=== PATIENT | male | born 1960 | race Caucasian/White ===

== ENCOUNTER 2017-11-10 10:05 | Emergency (ER) | payer SELFPAY ==
--- NOTE | 2017-11-10 10:47 | ED ---
Neurological HPI - HPI Summary HPI Summary: This patient is a 56 year old M presenting to [facility] accompanied by his with a chief complaint of confusion and memory loss with right arm weakjness last night 11/09/17; sx are currently resolved. He endorses memory loss, aphasia ( can only get a few words out, difficulty understanding speech), possible right sided hemiplegia, weakness, tremors, fatigue, and hypersomnia; this is at least the 6th episode, all of which start at around 1800, and each episode seems to be worse than the last. Pt is seeing Dr. Marrufo and has been treated since may for memory loss, neck compression, and muscular issues. Pts endorses sx are possibly stress related due to work. Pt endorsed similar sx with statins in the past. PMHx CPAP, essential tremor, right handed. - History of Current Complaint Chief Complaint: EDNeurologicalDeficit Stated Complaint: POSS STROKE 11/09 Time Seen by Provider: 11/10/17 10:18 Hx Obtained From: Patient, Family/Program Architect Onset/Duration: Sudden Onset, Started hours ago, Resolved Timing: Constant Onset Severity: Moderate Current Severity: None Neurological Deficit Location: Generalized Pain Intensity: 0 Pain Scale Used: 0-10 Numeric Character: Weak, Motor Weakness, Impaired Speech, Confusion, Lethargy, Other: - amnesia Aggravating: Sleep Deprivation - Only symptomatic in the evening/night, Stress Alleviating: Rest Associated Signs and Symptoms: Positive: Unsteady Gait, Memory Loss, Confusion, Weakness, Impaired Speech. Negative: Fever - Allergy/Home Medications Allergies/Adverse Reactions: Allergies Allergy/AdvReac Type Severity Reaction Status Date / Time No Known Allergies Allergy Verified 11/10/17 10:26 Home Medications: Home Medications Irbesartan/Hydrochlor 150/12.5 1 tab PO DAILY 11/10/17 [History Confirmed ] Propranolol TAB* [Inderal TAB*] 60 mg PO DAILY 11/10/17 [History Confirmed 11/10] PMH/Surg Hx/FS Hx/Imm Hx Endocrine/Hematology History: Denies: Hx Diabetes, Hx Sickle Cell Disease Cardiovascular History: Reports: Hx Hypertension - ON MEDS Denies: Hx Pacemaker/ICD Respiratory History: Denies: Hx Lung Cancer GI History: Denies: Hx Ileostomy History: Denies: Hx Renal Disease Sensory History: Reports: Hx Contacts or Glasses Denies: Hx Legally Blind, Hx Deafness, Hx Hearing Aid Opthamlomology History: Reports: Hx Contacts or Glasses Denies: Hx Legally Blind EENT History: Denies: Hx Deafness Neurological History: Reports: Other Neuro Impairments/Disorders - sundowners aphasia, amnesia Psychiatric History: Denies: Hx Panic Disorder - Surgical History Surgery Procedure, Year, and Place: LT KNEE - MMT REPAIR Infectious Disease History: No Infectious Disease History: Denies: Traveled Outside the [place] in Last 30 Days - Family History Known Family History: Positive: Hypertension, Diabetes, Other - CVA, CA - Social History Occupation: Employed Full-time Lives: With Family Alcohol Use: Occasionally Substance Use Type: Reports: None Smoking Status (MU): Never Smoked Tobacco Review of Systems Positive: Fatigue, Other - tremors. Negative: Fever Positive: no symptoms reported Neurological: Other - hemiplegia (possibly) right sided, amnesia, hypersomnia, Positive: Weakness, Slurred Speech - aphasia All Other Systems Reviewed And Are Negative: Yes Physical Exam - Summary Physical Exam Summary: Appearance: The patient is well-nourished in no acute distress and in no acute pain. Skin: The skin is warm and dry and skin color reflects adequate perfusion. HEENT: The head is normocephalic and atraumatic. The pupils are equal and reactive. The conjunctivae are clear and without drainage. Nares are patent and without drainage. Mouth reveals moist mucous membranes and the throat is without erythema and exudate. The external ears are intact. The ear canals are patent and without drainage. The tympanic membranes are intact. Neck: The neck is supple with full range of motion and non-tender. There are no carotid bruits. There is no neck vein distension. Respiratory: Chest is non-tender. Lungs are clear to auscultation and breath sounds are symmetrical and equal. Cardiovascular: Heart is regular rate and rhythm. There is no murmur or rub auscultated. There is no peripheral edema and pulses are symmetrical and equal. Abdomen: The abdomen is soft and non-tender. There are normal bowel sounds heard in all four quadrants and there is no organomegaly palpated. Musculoskeletal: There is no back tenderness noted. Extremities are non-tender with full range of motion. There is good capillary refill. There is no peripheral edema or calf tenderness elicited. Neurological: Patient is alert and oriented to person, place and time. The patient has symmetrical motor strength in all four extremities. Cranial nerves are grossly intact. Deep tendon reflexes are symmetrical and equal in all four extremities. NIH 0. Psychiatric: The patient has an appropriate affect and does not exhibit any anxiety or depression. Triage Information Reviewed: Yes Vital Signs On Initial Exam: Initial Vitals Temp Pulse Resp BP Pulse Ox 97.9 F 70 18 138/94 96 11/10/17 10:08 11/10/17 10:08 11/10/17 10:08 11/10/17 10:08 11/10/17 10:08 Vital Signs Reviewed: Yes - [place] Coma Scale Best Eye Response: 4 - Spontaneous Best Motor Response: 6 - Obeys Commands Best Verbal Response: 5 - Oriented Coma Scale Total: 15 Diagnostics - Vital Signs Vital Signs Temp Pulse Resp BP Pulse Ox 11/10/17 10:18 142/97 11/10/17 10:16 72 95 11/10/17 10:08 97.9 F 70 18 138/94 96 - Laboratory Result Diagrams: 11/10/17 11:41 11/10/17 11:40 Lab Statement: Any lab studies that have been ordered have been reviewed, and results considered in the medical decision making process. - CT Brain CT Interpretation: No Acute Changes CT Interpretation Completed By: Radiologist - No acute intracranial pathology. Dr. Thomas has reviewed this report. NIH Scale - NIH Scale Level of Consciousness: Alert/Keenly Responsive Ask Patient the Month and His/Her Age: Both Correct Ask Pt to Open/Close Eyes and Java User Interface Developer/Release Non-Paretic Hand: Both Correctly Best Gaze (Only Horizontal Eye Movement): Normal Visual Field Testing: No Visual Loss Facial Paresis-Pt to Smile & Close Eyes or Grimace Symmetry: Normal/Symmetrical Motor Function - Right Arm: No Drift-Holds 10 Seconds Motor Function - Left Arm: No Drift-Holds 10 Seconds Motor Function - Right Leg: No Drift-Holds 10 Seconds Motor Function - Left Leg: No Drift-Holds 10 Seconds Limb Ataxia-Must be out of Proportion to Weakness Present: Absent Sensory (Use Pinprick to Test Arms/Legs/Trunk/Face): Normal Best Language (Describe Picture, Name Items): No Aphasia Dysarthria (Read Several Words): Normal Extinction and Inattention: No Abnormality Total Score: 0 Re-Evaluation - Re-Evaluation First Eval Re-Evaluation Time: 13:41 Comment: discussed discharge and discharge instructions, follow up with Dr. Marrufo. Course/Dx - Course Course Of Treatment: Mr. Coronado presented with an unusual history of nighttime episodes of confusion and memory loss worse last night being worked up by Dr. Marrufo. His exam was unremarkable today and his vitals are stable. He goes to bed every evening at 6:00 and a confused state and sleeps 12 hours. A workup was obtained here and was within normal limits as well as his physical exam aside from a blood alcohol level of 50 approximately 17 hours after he went to bed. Dr. Snell had been contacted and came to the emergency department to evaluate him. It appears that he has been drinking a lot because of the stress of work and hiding it from his . It was recommended that he follow up with alcohol and drug counseling and get some psychological counseling for distress. He agreed to that plan as did she. - Diagnoses Provider Diagnoses: Alcohol use, Stress at work - Physician Notifications Discussed Care Of Patient With: Juan Snell Time Discussed With Above Provider: 12:28 Instructed by Provider To: Other - Will see pt in ED. Discharge - Sign-Out/Discharge Documenting (check all that apply): Patient Departure - discharge - Discharge Plan Condition: Stable Disposition: HOME Patient Education Materials: At-Risk Alcohol Use (ED) Referrals: López Marrufo MD [Medical Doctor] - 1 Week Additional Instructions: Return to the emergency department for any new or worsening symptoms. Follow up with drug and alcohol [place] [facility] using the highlighted information on the sheet provided. - Billing Disposition and Condition Condition: STABLE Disposition: Home - Attestation Statements Document Initiated by Itz: Yes Documenting Scribe: Micha Gramajo Provider For Whom Itz is Documenting (Include Credential): Dr. Kenneth Thomas MD Scribe Attestation: Micha Keys scribed for Dr. Kenneth Thomas MD on 11/10/17 at 1550. Scribe Documentation Reviewed: Yes Provider Attestation: The documentation as recorded by the Micha veras accurately reflects the service I personally performed and the decisions made by me, Dr. Kenneth Thomas MD
[2017-11-10 11:52] LABS: ABS Basophils 0.1 10^3/ul (0-0.2); ABS Eosinophils 0.1 10^3/ul (0-0.6); ABS Lymphocytes 1.1 10^3/ul (1.0-4.8); ABS Monocytes 0.8 10^3/ul (0-0.8); ABS Neutrophils 7.8 10^3/ul (1.5-7.7); ABS Nucleated RBC 0 10^3/ul; Eosinophil % 1.3 % (0-6); Hematocrit 42 % (42-52); Hemoglobin 14.2 g/dl (14.0-18.0); Lymphocyte % 11.2 % (25-47); Mean Corpuscular HGB Conc 34 g/dl (31-36); Mean Corpuscular Hemoglobin 33 pg (27-31); Mean Corpuscular Volume 98 fL (80-94); Mean Platelet Volume 7.8 um3 (7.4-10.4); Nucleated Red Blood Cells % 0; Platelet Count 194 10^3/ul (150-450); Red Blood Count 4.31 10^6/ul (4.00-5.40); Red Cell Distribution Width 13 % (10.5-15); White Blood Count 9.9 10^3/ul (3.5-10.8)
--- NOTE | 2017-11-10 11:56 | RAD ---
HISTORY: AMS COMPARISONS: MRI dated July 27, 2017 TECHNIQUE: Multiple contiguous axial CT scans were obtained of the head without intravenous contrast. FINDINGS: HEMORRHAGE/INFARCT: There is no hemorrhage or acute infarct. MASSES/SHIFT: There is no mass or shift. EXTRA-AXIAL SPACES: There are no extra-axial fluid collections. SULCI AND VENTRICLES: The sulci and ventricles are normal in size and position for the patient's stated age. CEREBRUM: There are no focal parenchymal abnormalities. BRAINSTEM: There are no focal parenchymal abnormalities. CEREBELLUM: There are no focal parenchymal abnormalities. VESSELS: The vessels are grossly normal. PARANASAL SINUSES: The paranasal sinuses are clear. ORBITS: The orbits are unremarkable. BONES AND SOFT TISSUE: No bone or soft tissue abnormalities are noted. OTHER: None IMPRESSION: NO ACUTE INTRACRANIAL PATHOLOGY.
[2017-11-10 11:58] LABS: INR 0.91 (0.77-1.02)
[2017-11-10 12:12] LABS: EGFR Non-African American 85.6 (>60)
[2017-11-10 12:38] LABS: Urine Appearance Clear; Urine Blood Negative (Negative); Urine Color Yellow; Urine Ketones Trace (Negative); Urine Protein Negative (Negative); Urine Specific Gravity 1.021 (1.010-1.030); Urine Urobilinogen Negative (Negative)
[2017-11-10 13:58] VITALS: BP 158/102
--- NOTE | 2017-11-10 21:59 | CONS ---
NEUROLOGY CONSULTATION NOTE: DATE OF CONSULT: 11/10/17 - EMERGENCY DEPT CONSULTING PROVIDER: Dr. Femi Thomas. REASON FOR CONSULT: Episodes of memory loss, impairment in language that resolved the following morning. CHIEF COMPLAINT: Tremors. HISTORY OF PRESENT ILLNESS: Mr. López Coronado is a 56-year-old right-handed man with history of hypertension, dyslipidemia, and obstructive sleep apnea, who is compliant to CPAP, who has had recurrent stereotypical episodes since May of 2017. These episodes occur mostly at nighttime and consist of language impairment, inability to understand sentences, and increase in tremors. The patient had a total of 6 episodes that last a few minutes to hours , and usually resolve when the patient wakes up after going to sleep. The last episode occurred last night. The patient was having dinner around 5-530 p.m. when he had an episode where he was unable to use the right arm. He was holding a hamburger using the right hand and his spouse did not want the dog to eat it. Immediately, she noticed that the patient was not lifting his arm, so she rushed to evaluate him. He appeared sleepy and lethargic. She slowly assisted him to go up the stairs into the bedroom where he fell asleep. The patient does not recall the episode. He denied any generalized convulsion, urinary incontinence, or tongue biting. The following morning, the patient was completely in normal state of health. His spouse was concerned about the event that took place yesterday and contacted the neurology office at [facility]. She was instructed to bring him to the ED for further evaluation. I reviewed the [facility] records as the patient sees Dr. Marrufo at [facility] as outpatient. The patient was first seen 05/26/17 for tremors and memory loss. He had a followup on 08/05/17 for evaluation of hyperreflexia and possible spastic gait. The patient had a workup with an MRI of the brain completed on 07/27/17 that was unremarkable followed by a cervical spine MRI on 09/02/17 that showed multilevel degenerative disk disease with no evidence of spinal cord compression. He does have multilevel foraminal stenosis mostly at C4 -C5 and C5-C6. The patient had a CT head without contrast completed on that showed no acute intracranial abnormalities. Laboratory values: Sodium 142, potassium 4.3, chloride 105, carbon dioxide 27, BUN 15, creatinine 0.91, lactic acid 2.2. AST 78, ALT 91, alkaline phosphatase 67. Ammonia is 35. TSH is 1.57. Interestingly, the patient's serum alcohol this morning was 53. PAST MEDICAL HISTORY: Hypertension, dyslipidemia, tremors, torn meniscus in 2013. MEDICATION LIST: 1. Propranolol 60 mg p.o. daily. 2. Irbesartan/hydrochlorothiazide 1 tablet p.o. daily. FAMILY HISTORY: Father had lung cancer. Mother had stroke. Brother had Parkinson's and Alzheimer's disease. Another brother had liver disease. SOCIAL HISTORY: The patient has a new position where he started at work March of 2017. He and his had to sign a gag order not to talk about what is going on at work. This has been stressing the patient significantly. He denied any tobacco use. He does consume alcohol regularly and slightly has noticed an increase in alcohol intake over the last few weeks. He consumed 4 to 5 glasses of wine last night. The patient scored 2/4 in a CAGE question where he does want to cut down and he feels guilty that he is drinking. When discussing his alcohol intake, the spouse denied that the patient consumes alcohol and the patient stated that he may have drunk 1 glass of wine last night. With further questioning, the patient did confess and stated that he drank about 4 to 5 glasses of wine and he has been drinking heavily recently due to stressors at work. The patient's was slightly upset and frustrated as she had no idea that the patient was consuming this degree of alcohol intake. REVIEW OF SYSTEMS: Fourteen-point review of system was obtained, otherwise negative except for what was mentioned in the HPI. PHYSICAL EXAM: Vitals: Temperature 97.9, pulse rate of 70, respiratory rate of 18, oxygen saturation of 96%, and blood pressure 138/94. General: A well- nourished, well-developed man, who seems slightly nervous and has poor eye contact. He is alert and cooperative. Head: Normocephalic without any obvious abnormality. Eyes: Conjunctivae/corneas are clear. No scleral icterus. Neck : Supple and symmetrical with no carotid bruits. He has no lymphadenopathy. Lungs are clear to auscultation bilaterally. Nonlabored breathing. Cardiovascular: Regular rate and rhythm. Normal S1, S2 with normal radial pulses that are palpable. Extremities: Normal range of motion with no cyanosis. Skin: No skin lesions or laceration. Psych: Affect is broad and normal mood. Easy to establish rapport. Neurological Examination: Mental Status: Awake, alert, and oriented to person, place, time, and general circumstances. Speech and language including expression, naming, repetition, and comprehensions were assessed and found to be normal. NIH Stroke Scale is 0 today. Cranial Nerves: Normal confrontation bilaterally. Pupils are mid range and reactive to light. Extraocular muscles are intact. There is no ptosis. Sensation is intact on the forehead, cheeks, and jaw region bilaterally. The patient has no facial droop. He is able to hear throughout the history process. There is symmetric palatal elevation. He has got normal strength against resistance. Tongue is symmetric and midline with no atrophy or fasciculation. Motor Examination: High frequency tremors involving the upper extremities bilaterally. He has no pronator drift. The tremors are worse with posture and action, but resolve on resting. Motor Examination: 5/5 in the upper and lower extremities. Reflexes: Right/left, brachioradialis 2/2 , biceps 2/2, triceps 2/2, patella 3/3, ankle 2/2, plantar flexor/flexor. Sensation is intact to light touch and pinprick throughout, but there is distal to proximal sensory gradient demarcated around the ankles bilaterally. I was unable to appreciate any spastic gait today, but he does have a wide-based gait. Coordination: Normal finger-to- nose and rapid alternating movements bilaterally. Gait: As mentioned above, wide- based gait with no ataxia. ASSESSMENT AND PLAN: Mr. López Coronado is a 56-year-old man with a history of hypertension, dyslipidemia, and obstructive sleep apnea, who presents with recurrent episodes of worsening memory function and word-finding difficulty with 1 episode of inability to elevate the right arm when instructed to do so last night after consuming 4-5 glasses of wine. The patient was found to have an alcohol level this morning of 54. The family initially denied any alcohol intake, but with further discussion, the broke down today and stated that he has been consuming alcohol more than he should and he drank approximately 4 to 5 glasses of wine last night correlating with his elevated alcohol level this morning. Interestingly, I am concerned that the patient may have been intoxicated with alcohol during these episodes that he has been having over the last few months since the symptoms seem to completely resolve the following morning, mostly likely after the alcohol has been metabolized. He has had an MRI of the brain and cervical spine over the last 3 months that ruled out any acute intracranial or spinal pathology. He has never had any ultrasound of the carotids, but I do not suspect a vascular etiology to explain his symptoms. If he continues to have symptoms, I recommend obtaining an ultrasound of the carotids to rule out any carotid disease as well as obtaining an EEG to rule out any seizures. I advised the patient to reduce the intake of alcohol and not to completely discontinue alcohol as he is at risk of developing seizures. I also recommend starting him on thiamine supplementation 100 mg daily to prevent any possible alcohol-related dementia. I have added a vitamin B12 level, which I will check once the level comes back since his homocysteine level was slightly elevated. He may be developing some vitamin B12 deficiency as well. I recommend a followup with Dr. Marrufo, which he has one scheduled within the next few weeks. TIME SPENT: I spent a total of 70 minutes obtaining history, examining the patient, and discussing the treatment plan as mentioned above. I answered all the family's questions. I discussed the case with Dr. Thomas. Please contact me for any questions or concerns. [id number]/[facility] #: [id number] ADDENDUM: B12: 382. No further intervention but rechecking the level in 2-3 months or getting a MMA level is ideal and if it drops lower, then starting cyanocobalamin supplementation is recommended. This can be done as outpatient when evaluated by Dr. Marrufo. KAROLINE
== END 2017-11-10 13:57 | disposition home or self-care (01) ==
LOC: ED 10:05
DX: F10.20 Alcohol dependence, uncomplicated (principal); Y90.2 Blood alcohol level of 40-59 mg/100 ml; F43.9 Reaction to severe stress, unspecified; I10 Essential (primary) hypertension; R25.1 Tremor, unspecified; Z79.899 Other long term (current) drug therapy; Z99.89 Dependence on other enabling machines and devices
CPT/HCPCS: 36415; 70450; 80053; 80320; 81003; 82140; 82607; 83605; 84443; 84484; 85025; 85610; 99283; G0480